=== PATIENT | female | born 1940 | race Caucasian/White ===

== ENCOUNTER → 2016-08-26 | Outpatient (CLI) | payer MEDICAID, MEDICARE ==
[~2016-08-26] MED LIST: DOBUTamine DRIP for NUC MED 500 MG in DEXTROSE/WATER 1 250ML.BAG IV ONE
--- NOTE | 2016-08-26 12:32 | ECHOS ---
DATE OF SERVICE: 08/26/2016 AGE: 76Y SEX: F HT: WT: lbs. Protocol Nolan: Others: Dobutamine Stress Echo Stage: Dur. of Exercise: *Heart Rate Blood Pressure *Rest: 81 Rest: 127/78 * *Max. Achieved: 136 Maximum BP: 140/72 85% PMHR: 123 100% PMHR: 145 *METS: INDICATIONS: Chest pain. MEDICATIONS: Synthroid. Mrs. Edouard is a 76-year-old female with history of hypothyroidism being evaluated for chest pains and cardiac status. STRESS DATA: Baseline EKG showed sinus rhythm with normal VA interval and QRS duration. Blood pressure at rest is 127/78, pulse rate of 81. A standard dose of dobutamine was initiated and titrated to 20 mcg. Patient achieved a maximum heart rate of 136 with blood pressure of 140/72. EKGs taken during and after the infusion did not reveal any changes to suggest ischemia. Baseline echo images show normal wall motion and thickening. Exercise echo images at low dose and high-dose dobutamine showed augmentation of the wall motion and thickening in all the segments. FINAL IMPRESSION: 1. Negative dobutamine stress test. 2. Negative dobutamine stress echo.
[2016-08-26 12:44] LABS: CH 31.8; CHCM 33.6; HCT 44.4 % (34.0-46.0); HGB 14.8 gm/dL (11.4-16.0); MCH 31.6 pg (25.0-35.0); MCHC 33.3 g/dL (31.0-37.0); MCV 94.9 fL (80.0-100.0); Mean Platelet Volume 7.1; RBC 4.68 m/uL (3.80-5.40); RDW 12.8 % (11.5-15.5); WBC 5.2 k/uL (3.8-10.6)
[2016-08-26 12:49] LABS: Appearance,Urine Clear (Clear); Bilirubin,Urine Negative (Negative); Glucose,Urine (UA) Negative (Negative); Ketones,Urine Negative (Negative); Leukocyte Esterase,Urine Trace (Negative); Mucus,Urine Rare /hpf; Nitrite,Urine Negative (Negative); PH, Urine 5.5 (5.0-8.0); Particle Count 3125; Protein,Urine Negative (Negative); Specific Gravity,Urine 1.015 (1.001-1.035); Squamous Epithelial Cell,Urine 1 /hpf (0-4); UA Billing (MACRO vs. MICRO) MICRO; Urobilinogen,Urine <2.0 mg/dL (<2.0); WBC,Urine <1 /hpf (0-5)
[2016-08-26 13:11] LABS: ALT 38 U/L (9-52); AST 29 U/L (14-36); Alkaline Phosphatase 83 U/L (38-126); Anion Gap 12 mmol/L; Blood Urea Nitrogen 12 mg/dL (7-17); Calcium 9.6 mg/dL (8.4-10.2); Carbon Dioxide 26 mmol/L (22-30); Chloride 106 mmol/L (98-107); Cholesterol 219 mg/dL (<200); Creatine Kinase 117 U/L (30-135); Glucose 101 mg/dL (74-99); HDL Cholesterol 60 mg/dL (40-60); Non-African American GFR(MDRD) >60 (>60 ml/min/1.73 sqM); Potassium 4.6 mmol/L (3.5-5.1); Sodium 144 mmol/L (137-145); Total Bilirubin 0.8 mg/dL (0.2-1.3); Total Protein 7.6 g/dL (6.3-8.2); Triglycerides 208 mg/dL (<150)
[2016-08-26 13:45] LABS: Hemoglobin A1C 5.5 % (4.2-6.1)
--- NOTE | 2016-08-30 08:08 | MM ---
Reason for exam: screening (asymptomatic). Last mammogram was performed 1 year and 1 month ago. History: Patient is postmenopausal. Family history of breast cancer in 2 maternal aunts at age 60. Benign excisional biopsy of the right breast, 1970. Took estrogen for 20 years. Taking other hormone. Physical Findings: A clinical breast exam by your physician is recommended on an annual basis and results should be correlated with mammographic findings. MG 3D Screening Mammo W/Cad Bilateral CC and MLO view(s) were taken. Prior study comparison: July 27, 2015, bilateral MG screening mammo w CAD. April 25, 2014, bilateral MG screening mammo w CAD. February 07, 2013, bilateral digital screening mammo w/CAD. January 25, 2012, bilateral digital screening mammo w/CAD. There are scattered fibroglandular densities. No significant changes when compared with prior studies. ASSESSMENT: Negative, BI-RAD 1 RECOMMENDATION: Routine screening mammogram of both breasts in 1 year.
--- NOTE | 2016-08-30 15:30 | BD ---
EXAMINATION TYPE: MG DEXA axial skeleton. DATE OF EXAM: 08/26/2016 5:20 PM COMPARISON: NONE CLINICAL HISTORY: M81.0 76-year-old female age-related osteoporosis Height: 61.5 Weight: 140 FRAX RISK QUESTIONS: Alcohol (3 or more units per day): No Family History (Parent hip fracture): No Glucocorticoids (More than 3mos): No (Ex: prednisone, prednisolone, methylprednisolone, dexamethasone, and hydrocortisone). History of Fracture in Adulthood: No Secondary Osteoporosis: No 1. Type 1 Diabetes: No 2. Hyperthyroidism: No 3. Menopause before 45: Yes 4. Malnutrition: No 5. Chronic liver disease: No Rheumatoid Arthritis: No Current Tobacco Use: No RISK FACTORS HISTORY OF: Family History of Osteoporosis: None known Smoke tobacco: No Drink Alcohol: Social Active: Was, but has retired now Diet low in dairy products/other sources of calcium: Postmenopausal woman: Yes, at age 32, total hystorectomy Take estrogen and/or progesterone medications: Yes in the past How long: For 20 years Adrenal Insufficiency: No MEDICATIONS: Prednisone or other steroids: Yes, Synthroid How Lon plus years Additional Medications: None to note except the thyroid meds Additional History: None to note EXAM MEASUREMENTS: Bone mineral densitometry was performed using the [employer]. Bone mineral density as measured about the Lumbar spine is: ----- L1-L4(G/cm2): 1.255 T Score Values are as follows: ----- L1: -0.4 ----- L2: 0.9 ----- L3: 0.5 ----- L4: 1.1 ----- L1-L4: 0.6 Bone mineral density has: 1.8% since study of: 09/19/2014 Bone mineral density about the R hip (g/cm2): 0.927 Bone mineral density about the L hip (g/cm2): 0.686 T Score values are as follows: -----R Neck: -2.5 -----L Neck: -0.8 -----R Intertrochanter: -2.6 -----L Intertrochanter: -2.7 Bone mineral density has: Decreased -2.2% since study of: 09/21/2014 FRAX %'S: FOR MAJOR OSTEOPOROTIC FX: 17.4%.....FOR HIP FX: 5.7% PROBABILITY OF FX IN 10 YRS TIME IMPRESSION: Osteoporosis (T Score less than -2.5) as noted by T Score values at the There is increased fracture risk and therapy is usually indicated based on age. Re-Screen 1-2 years. For both of her hips NOTE: T-SCORE=SD OF THE YOUNG ADULT MEAN.
== END | disposition home or self-care (01) ==
LOC: RADNMMAIN 10:06
PROVIDERS: ATTEND Family Medicine
DX: Z12.31 Encounter for screening mammogram for malignant neoplasm of breast (principal); R07.9 Chest pain, unspecified; M81.0 Age-related osteoporosis without current pathological fracture; E78.5 Hyperlipidemia, unspecified; E03.9 Hypothyroidism, unspecified
CPT/HCPCS: 93017; 93350; 80061; 80053; 83036; 82550; 84443; 85027; 81001; 82306; 77080; 77063; 36415; G0202; J1250

== ENCOUNTER → 2017-09-25 | Outpatient (CLI) | payer MEDICARE ==
[2017-09-25 10:43] LABS: Basophils # (A) 0.1 k/uL (0-0.2); Basophils % (A) 1 %; Eosinophils # (A) 0.1 k/uL (0-0.7); Eosinophils % (A) 1 %; HCT 45.4 % (34.0-46.0); HGB 14.9 gm/dL (11.4-16.0); Lymphocytes # (A) 2.3 k/uL (1.0-4.8); Lymphocytes % (A) 36 %; MCH 30.8 pg (25.0-35.0); MCHC 32.7 g/dL (31.0-37.0); MCV 94.2 fL (80.0-100.0); Mean Platelet Volume 7.2; Monocytes # (A) 0.4 k/uL (0-1.0); Monocytes % (A) 7 %; Neutrophils # (A) 3.4 k/uL (1.3-7.7); Neutrophils % (A) 54 %; Platelet Count 255 k/uL (150-450); RBC 4.82 m/uL (3.80-5.40); RDW 12.5 % (11.5-15.5); WBC 6.4 k/uL (3.8-10.6)
[2017-09-25 11:12] LABS: ALT 26 U/L (9-52); AST 24 U/L (14-36); Albumin 4.4 g/dL (3.5-5.0); Alkaline Phosphatase 83 U/L (38-126); Anion Gap 7 mmol/L; Blood Urea Nitrogen 14 mg/dL (7-17); Carbon Dioxide 31 mmol/L (22-30); Chloride 104 mmol/L (98-107); Cholesterol 219 mg/dL (<200); Glucose 105 mg/dL (74-99); HDL Cholesterol 58 mg/dL (40-60); LDL Cholesterol,Calculated 127 mg/dL (0-99); Potassium 5.1 mmol/L (3.5-5.1); Sodium 142 mmol/L (137-145); Total Bilirubin 0.7 mg/dL (0.2-1.3); Total Protein 7.5 g/dL (6.3-8.2); Triglycerides 169 mg/dL (<150)
[2017-09-25 11:24] LABS: T4, Free (Free Thyroxine) 1.12 ng/dL (0.78-2.19)
--- NOTE | 2017-09-27 10:49 | MM ---
Reason for exam: screening (asymptomatic). Last mammogram was performed 1 year and 1 month ago. History: Patient is postmenopausal. Family history of breast cancer in 2 maternal aunts at age 60 and breast cancer in daughter at age 50. Benign excisional biopsy of the right breast, 1970. Took estrogen for 20 years. Taking other hormone. Physical Findings: A clinical breast exam by your physician is recommended on an annual basis and results should be correlated with mammographic findings. MG 3D Screening Mammo W/Cad Bilateral CC and MLO view(s) were taken. Prior study comparison: August 26, 2016, bilateral MG 3d screening mammo w/cad. July 27, 2015, bilateral MG screening mammo w CAD. There are scattered fibroglandular densities. There is chronic nodularity in the left breast. No significant changes when compared with prior studies. ASSESSMENT: Negative, BI-RAD 1 RECOMMENDATION: Routine screening mammogram of both breasts in 1 year.
== END | disposition home or self-care (01) ==
LOC: RADMAMWWP 10:09
PROVIDERS: ATTEND Family Medicine
DX: Z12.31 Encounter for screening mammogram for malignant neoplasm of breast (principal); Z00.00 Encounter for general adult medical examination without abnormal findings; E03.9 Hypothyroidism, unspecified; E78.5 Hyperlipidemia, unspecified; E55.9 Vitamin D deficiency, unspecified
CPT/HCPCS: 36415; 77063; 77067; 80053; 80061; 82306; 84439; 84443; 85025

== ENCOUNTER 2018-10-02 11:57 | Emergency (ER) | payer MEDICARE ==
[2018-10-02 12:45] VITALS: BP 134/83; PULSE 74; RESP 16; TEMP 97.8
--- NOTE | 2018-10-02 13:47 | XR ---
EXAMINATION TYPE: XR humerus 2 views RT, XR shoulder complete 3 views RT DATE OF EXAM: 10/02/2018 COMPARISON: NONE HISTORY: 78-year-old female with pain after fall FINDINGS: Mild degenerative joint space narrowing at the AC joint. There is some bony irregularity at the great er tuberosity and some narrowing between the lateral acromion and greater tuberosity on the Grashey v iew. Degenerative spurring at the glenohumeral joint. No acute fracture, subluxation, dislocation. No acute fracture of the more mid to distal humerus. IMPRESSION: 1. Mild AC joint OA. 2. Bony changes at the greater tuberosity suggests underlying chronic rotator cuff tendinopathy. 3. Underlying rotator cuff tear difficult to exclude as there does seem to be some narrowing of the s ubacromial space on some views. 4. Underlying mild glenohumeral joint OA. 5. No acute osseous or poorly seen.
[2018-10-02] MEDS ORDERED: ACET/COD 300 MG/30 MG STARTER PACK 6 TAB BTL PO STA (14:09)
--- NOTE | 2018-10-02 14:10 | ED ---
Upper Extremity HPI - General Chief Complaint: Extremity Injury, Upper Stated Complaint: Arm pain Time Seen by Provider: 10/02/18 12:48 Source: patient, RN notes reviewed, old records reviewed Mode of arrival: ambulatory Limitations: no limitations - History of Present Illness Initial Comments: 78 year old female with R shoulder pain after she fell in her basemsnt yesterday. She reports no head injury or LOC. She reports pain with ROM of right shoulder and unable to lift arm. She denies chest pain, shortness of breath. - Related Data Previous Rx's Medication Instructions Recorded Ibuprofen 600 mg PO TID #20 tablet 10/02/18 Allergies Allergy/AdvReac Type Severity Reaction Status Date / Time No Known Allergies Allergy Verified 10/02/18 12:45 Review of Systems ROS Statement: Those systems with pertinent positive or pertinent negative responses have been documented in the HPI. ROS Other: All systems not noted in ROS Statement are negative. Past Medical History Past Medical History: No Reported History History of Any Multi-Drug Resistant Organisms: None Reported Past Surgical History: Cholecystectomy, Hysterectomy, Orthopedic Surgery, Tonsillectomy Past Psychological History: No Psychological Hx Reported Smoking Status: Never smoker Past Alcohol Use History: Rare Past Drug Use History: None Reported General Exam - General Exam Comments Initial Comments: 78 year old female, no distress. Limitations: no limitations General appearance: alert, in no apparent distress Head exam: Present: atraumatic, normocephalic, normal inspection Eye exam: Present: normal appearance, PERRL, EOMI. Absent: scleral icterus, conjunctival injection, periorbital swelling ENT exam: Present: normal exam, mucous membranes moist Neck exam: Present: normal inspection. Absent: tenderness, meningismus, lymphadenopathy Respiratory exam: Present: normal lung sounds bilaterally. Absent: respiratory distress, wheezes, rales, rhonchi, stridor Cardiovascular Exam: Present: regular rate, normal rhythm, normal heart sounds. Absent: systolic murmur, diastolic murmur, rubs, gallop, clicks Extremities exam: Present: normal capillary refill. Absent: normal inspection, full ROM (Patient has limited ROM of R shoulder ), tenderness, pedal edema, joint swelling, calf tenderness Back exam: Present: normal inspection Psychiatric exam: Present: normal affect, normal mood Skin exam: Present: warm, dry, intact, normal color. Absent: rash Course Vital Signs 10/02/18 12:41 Temperature 97.8 F Pulse Rate 74 Respiratory 16 Rate Blood Pressure 134/83 O2 Sat by Pulse 99 Oximetry Medical Decision Making - Medical Decision Making 78 year old female with R shoulder pain after fall.She is unable to abduct and patient has xray completed. Xray shows concern for rotator cuff injury. Placed in sling and given ortho follow up. Return parameters discussed. - Radiology Data Radiology results: report reviewed Mild before meals joint os or arthritis. Bony changes the greater tuberosity suggesting underlying chronic rotator cuff tendinopathy. Underlying rotator cuff tear difficult to exclude as there does seem to be some narrowing of the subacromial space. Underlying mild general humeral joint 08. No acute osseous or N O'Gisel seen. Disposition Clinical Impression: Rotator cuff injury, Fall Disposition: HOME SELF-CARE Condition: Good Instructions (If sedation given, give patient instructions): Rotator Cuff Injury (ED) Additional Instructions: Patient advised to have close follow-up with primary care physician and biomedical specialist. Wear the sling practice range of motion. Motrin and Tylenol for pain. Use Ice. Prescriptions: Ibuprofen 600 mg PO TID #20 tablet Is patient prescribed a controlled substance at d/c from ED?: No Referrals: Carline Hollis MD [Primary Care Provider] - 1-2 days Ronaldo Vincent MD [STAFF PHYSICIAN] - 1-2 days Time of Disposition: 14:07
== END 2018-10-02 14:28 | disposition home or self-care (01) ==
LOC: EC 11:57
DX: S46.001A Unspecified injury of muscle(s) and tendon(s) of the rotator cuff of right shoulder, initial encounter (principal); W19.XXXA Unspecified fall, initial encounter; Y92.89 Other specified places as the place of occurrence of the external cause
CPT/HCPCS: 99284

== ENCOUNTER → 2019-05-15 | Outpatient (CLI) | payer MEDICARE ==
[2019-05-15 10:37] LABS: Basophils % (A) 1 %; Eosinophils # (A) 0.1 k/uL (0-0.7); Eosinophils % (A) 1 %; HCT 43.9 % (34.0-46.0); Lymphocytes # (A) 1.6 k/uL (1.0-4.8); Lymphocytes % (A) 27 %; MCH 32.7 pg (25.0-35.0); MCHC 34.2 g/dL (31.0-37.0); MCV 95.7 fL (80.0-100.0); Mean Platelet Volume 6.6; Monocytes # (A) 0.4 k/uL (0-1.0); Monocytes % (A) 6 %; Neutrophils # (A) 3.6 k/uL (1.3-7.7); Neutrophils % (A) 63 %; Platelet Count 250 k/uL (150-450); RBC 4.59 m/uL (3.80-5.40); RDW 12.4 % (11.5-15.5); WBC 5.7 k/uL (3.8-10.6)
[2019-05-15 10:41] LABS: ALT 22 U/L (9-52); AST 24 U/L (14-36); African American GFR (CKD) >90 (>60 ml/min/1.73 sqM); Albumin 4.3 g/dL (3.5-5.0); Alkaline Phosphatase 73 U/L (38-126); Anion Gap 7 mmol/L; Blood Urea Nitrogen 11 mg/dL (7-17); Calcium 9.9 mg/dL (8.4-10.2); Carbon Dioxide 29 mmol/L (22-30); Chloride 106 mmol/L (98-107); Cholesterol 189 mg/dL (<200); Glucose 103 mg/dL (74-99); HDL Cholesterol 56 mg/dL (40-60); LDL Cholesterol,Calculated 100 mg/dL (0-99); Potassium 5.2 mmol/L (3.5-5.1); Sodium 142 mmol/L (137-145); Total Bilirubin 0.7 mg/dL (0.2-1.3); Total Protein 7.4 g/dL (6.3-8.2); Triglycerides 167 mg/dL (<150)
[2019-05-15 10:52] LABS: T4, Free (Free Thyroxine) 1.38 ng/dL (0.78-2.19)
--- NOTE | 2019-05-16 14:44 | MM ---
Reason for exam: screening (asymptomatic). Last mammogram was performed 1 year and 8 months ago. History: Patient is postmenopausal. Family history of breast cancer in 2 maternal aunts at age 60 and breast cancer in daughter at age 50. Benign excisional biopsy of the right breast, 1970. Took estrogen for 20 years. Taking other hormone. Physical Findings: A clinical breast exam by your physician is recommended on an annual basis and results should be correlated with mammographic findings. MG 3D Screening Mammo W/Cad Bilateral CC and MLO view(s) were taken. Prior study comparison: September 25, 2017, bilateral MG 3d screening mammo w/cad. August 26, 2016, bilateral MG 3d screening mammo w/cad. The breast tissue is heterogeneously dense. This may lower the sensitivity of mammography. Benign appearing bilateral calcifications. No suspicious abnormality. No significant changes when compared with prior studies. ASSESSMENT: Benign, BI-RAD 2 RECOMMENDATION: Routine screening mammogram of both breasts in 1 year.
== END | disposition home or self-care (01) ==
LOC: RADMAMWWP 08:50
PROVIDERS: ATTEND Family Medicine
DX: Z12.31 Encounter for screening mammogram for malignant neoplasm of breast (principal); M81.0 Age-related osteoporosis without current pathological fracture; E03.9 Hypothyroidism, unspecified; E78.5 Hyperlipidemia, unspecified; E55.9 Vitamin D deficiency, unspecified
CPT/HCPCS: 36415; 77063; 77067; 80053; 80061; 84439; 84443; 85025

== ENCOUNTER 2021-07-18 13:25 | Emergency (ER) | payer MEDICARE ==
--- NOTE | 2021-07-18 14:28 | ED ---
General Adult HPI - General Stated complaint: COVID+,wants antibodies Time Seen by Provider: 07/18/21 13:37 Source: patient, RN notes reviewed Mode of arrival: ambulatory Limitations: no limitations - History of Present Illness Initial comments: 81-year-old female presents emergency Department with chief complaint of covid 19. Patient states that she tested positive today.A symptoms started today. Patient states she did have mild headache 2 days ago. Patient denies any chest pain shortness breath she's had her prior vaccine. No shortness breath no chest pain or nausea vomiting diarrhea constipation no sick contacts patient has a positive results from [facility]. - Related Data Previous Rx's Medication Instructions Recorded Ibuprofen 600 mg PO TID #20 tablet 10/02/18 Allergies Allergy/AdvReac Type Severity Reaction Status Date / Time No Known Allergies Allergy Verified 07/18/21 13:51 Review of Systems ROS Statement: Those systems with pertinent positive or pertinent negative responses have been documented in the HPI. ROS Other: All systems not noted in ROS Statement are negative. Past Medical History Past Medical History: No Reported History History of Any Multi-Drug Resistant Organisms: None Reported Past Surgical History: Cholecystectomy, Hysterectomy, Orthopedic Surgery, Tonsillectomy Past Psychological History: No Psychological Hx Reported Smoking Status: Never smoker Past Alcohol Use History: Rare Past Drug Use History: None Reported General Exam Limitations: no limitations General appearance: alert, in no apparent distress Head exam: Present: atraumatic, normocephalic, normal inspection Eye exam: Present: normal appearance, PERRL, EOMI. Absent: scleral icterus, conjunctival injection, periorbital swelling ENT exam: Present: normal exam, normal oropharynx, mucous membranes moist Neck exam: Present: normal inspection, full ROM. Absent: tenderness, meningismus, lymphadenopathy Respiratory exam: Present: normal lung sounds bilaterally. Absent: respiratory distress, wheezes, rales, rhonchi, stridor Cardiovascular Exam: Present: regular rate, normal rhythm, normal heart sounds. Absent: systolic murmur, diastolic murmur, rubs, gallop, clicks Neurological exam: Present: alert Skin exam: Present: warm, dry, intact, normal color. Absent: rash Course Vital Signs 07/18/21 13:45 Temperature 98.7 F Pulse Rate 77 Respiratory 18 Rate Blood Pressure 130/72 O2 Sat by Pulse 97 Oximetry Medical Decision Making - Medical Decision Making Patient received monoclonal antibodies patient will be discharged and stable condition return parameters discussed. Disposition Clinical Impression: COVID-19 Disposition: HOME SELF-CARE Condition: Stable Instructions (If sedation given, give patient instructions): Coronavirus Disease 2019 (COVID-19) Additional Instructions: Please return to the Emergency Department if symptoms worsen or any other concerns. Is patient prescribed a controlled substance at d/c from ED?: No Referrals: Nonstaff,Physician [Primary Care Provider] - 1-2 days Time of Disposition: 14:27
[2021-07-18] MEDS ORDERED: BAMLANIVIMAB (EUA) 700 MG, ETESEVIMAB (EUA) 1,400 MG in SODIUM CHLORIDE 0.9% 50 ML IVPB ONE (14:30)
[2021-07-18] MEDS ORDERED: SODIUM CHLORIDE 0.9% 50 ML IVPB ONE (15:00)
[2021-07-18 16:20] VITALS: BP 134/76; PULSE 60; RESP 20; TEMP 97.6
== END 2021-07-18 16:21 | disposition home or self-care (01) ==
LOC: EC 13:25
DX: U07.1 COVID-19 (principal)
CPT/HCPCS: 99283; J3490

== ENCOUNTER → 2021-12-24 | Outpatient (CLI) | payer MEDICARE ==
--- NOTE | 2021-12-24 09:20 | MR ---
EXAMINATION TYPE: MR brain wo con DATE OF EXAM: 12/24/2021 COMPARISON: CT brain 2012 HISTORY: Memory loss, CVA, Cognitive dysfunction TECHNIQUE: Multiplanar, multisequence imaging of the brain and brainstem is performed without IV cont rast. FINDINGS: Diffusion weighted images demonstrate no evidence of a recent infarct or other diffusion abnormality. There is mild ventricular and sulcal prominence. Some scattered areas of T2 hyperintensity throughout the white matter bilaterally are identified. Lesions are nonspecific in appearance and distribution. Midline structures demonstrate normal morphology. The craniocervical junction appears within normal limits. Normal vascular flow voids are present. The visualized sinuses are clear and the globes are i ntact. IMPRESSION: Mild diffuse age related cerebral atrophy and chronic small vessel ischemic change.
== END | disposition home or self-care (01) ==
LOC: RADMRIMAIN 08:09
PROVIDERS: ATTEND Psychiatry & Neurology Neurology
DX: G31.9 Degenerative disease of nervous system, unspecified (principal); R46.3 Overactivity
CPT/HCPCS: 70551

== ENCOUNTER 2022-02-26 13:15 | Emergency (ER) | payer MEDICARE ==
[2022-02-26 13:23] VITALS: BP 137/79; PULSE 76; RESP 20; TEMP 98.1
--- NOTE | 2022-02-26 13:55 | ED ---
General Adult HPI - General Chief complaint: Headache Stated complaint: Covid+, infusion Time Seen by Provider: 02/26/22 13:27 Source: patient, RN notes reviewed Mode of arrival: ambulatory Limitations: no limitations - History of Present Illness Initial comments: 81-year-old female presents to the emergency room for a chief complaint antibodies. Patient had company from [place] over and started to have symptoms of COVID-19 4 days ago. She tested positive with home test today. She is a mild headache and a slight cough. No shortness of breath or fevers. Patient does not have any medical problems. Patient was dropped off by her daughter for antibody infusion.Patient has no other complaints at this time including shortness of breath, chest pain, abdominal pain, nausea or vomiting, headache, or visual changes. - Related Data Previous Rx's Medication Instructions Recorded Ibuprofen 600 mg PO TID #20 tablet 10/02/18 Nirmatrelvir/Ritonavir [Paxlovid 1 each PO BID 5 Days #20 tab 02/26/22 150-100 mg Pack (Eua)] Allergies Allergy/AdvReac Type Severity Reaction Status Date / Time No Known Allergies Allergy Verified 02/26/22 13:23 Review of Systems ROS Statement: Those systems with pertinent positive or pertinent negative responses have been documented in the HPI. ROS Other: All systems not noted in ROS Statement are negative. Past Medical History Past Medical History: Thyroid Disorder History of Any Multi-Drug Resistant Organisms: None Reported Past Surgical History: Cholecystectomy, Hysterectomy, Orthopedic Surgery, Tonsillectomy Past Psychological History: No Psychological Hx Reported Smoking Status: Never smoker Past Alcohol Use History: Rare Past Drug Use History: None Reported General Exam Limitations: no limitations General appearance: alert, in no apparent distress Head exam: Present: atraumatic Eye exam: Present: normal appearance, PERRL, EOMI. Absent: scleral icterus, conjunctival injection ENT exam: Present: normal exam, mucous membranes moist Neck exam: Present: normal inspection, full ROM. Absent: tenderness Respiratory exam: Present: normal lung sounds bilaterally. Absent: respiratory distress, wheezes Cardiovascular Exam: Present: regular rate, normal rhythm, normal heart sounds Course Vital Signs 02/26/22 13:20 Temperature 98.1 F Pulse Rate 76 Respiratory 20 Rate Blood Pressure 137/79 O2 Sat by Pulse 99 Oximetry Medical Decision Making - Medical Decision Making Vitals are stable. Patient is well-appearing. She is not in any respiratory distress. She does not have any medical comorbidities aside from age. At this time our facility is in very low supply of IV antibody infusion. Therefore patient will be given oral antibodies. After several phone calls I did discuss this with her daughter Viji. They are aware they need to go to [facility] for the prescription. Disposition Clinical Impression: COVID-19 Disposition: HOME SELF-CARE Condition: Good Instructions (If sedation given, give patient instructions): COVID-19 (Coronavirus Disease 2019) (ED) Additional Instructions: The supply of IV antibody infusion is very low in our region this week. However, we will be able to give you the pill form of the antibodies which has been found to be effective in preventing adverse outcomes in COVID 19. The prescription was sent to [facility] as that is the only pharmacy in the area with the medication. There will be two different medications. Take the two pills together twice per day for 5 days. Return to the ER for any worsening symptoms such as difficulty breathing. Prescriptions: Nirmatrelvir/Ritonavir [Paxlovid 150-100 mg Pack (Eua)] 1 each PO BID 5 Days #20 tab Is patient prescribed a controlled substance at d/c from ED?: No Referrals: Marichuy Silva MD [REFERRING] - 1-2 days Time of Disposition: 13:52
== END 2022-02-26 14:30 | disposition home or self-care (01) ==
LOC: EC 13:15
DX: U07.1 COVID-19 (principal)
CPT/HCPCS: 99283

== ENCOUNTER → 2022-07-01 | Outpatient (CLI) | payer MEDICARE ==
[2022-07-01 23:49] LABS: T4, Free (Free Thyroxine) 1.35 ng/dL (0.800-1.800)
== END | disposition home or self-care (01) ==
LOC: LABWHC1 16:05
PROVIDERS: ATTEND Psychiatry & Neurology Neurology
DX: E03.9 Hypothyroidism, unspecified (principal)
CPT/HCPCS: 36415; 84439; 84443; 84481

== ENCOUNTER → 2023-09-22 | Outpatient (CLI) | payer MEDICARE ==
[2023-09-22 15:09] LABS: Basophils # (A) 0.03 X 10*3/uL (0.00-0.10); Basophils % (A) 0.5 %; Eosinophils # (A) 0.05 X 10*3/uL (0.04-0.35); Eosinophils % (A) 0.8 %; HCT 44.4 % (37.2-46.3); HGB 14.7 g/dL (12.0-15.0); Lymphocytes # (A) 1.46 X 10*3/uL (0.90-5.00); Lymphocytes % (A) 24.2 %; MCH 31.5 pg (27.0-32.0); MCHC 33.1 g/dL (32.0-37.0); MCV 95.3 FL (80.0-97.0); Mean Platelet Volume 10.1 FL (9.5-12.2); Monocytes # (A) 0.52 X 10*3/uL (0.20-1.00); Monocytes % (A) 8.6 %; NRBC Per 100 WBC 0 X 10*3/uL (0.00-0.01); Neutrophils # (A) 3.97 X 10*3/uL (1.80-7.70); Neutrophils % (A) 65.7 %; Platelet Count 288 X 10*3/uL (140-440); RBC 4.66 X 10*6/uL (4.10-5.20); RDW 13.1 % (11.5-14.5); WBC 6.04 X 10*3/uL (4.50-10.00)
[2023-09-22 15:46] LABS: ALT 17 U/L (8-44); AST 17 U/L (13-35); Albumin 4.2 g/dL (3.8-4.9); Albumin/Globulin Ratio 1.75 Ratio (1.60-3.17); Alkaline Phosphatase 73 U/L (41-126); BUN/Creat Ratio 20.71 Ratio (12.00-20.00); Blood Urea Nitrogen 14.5 mg/dL (9.0-27.0); Calcium 9.6 mg/dL (8.7-10.3); Carbon Dioxide 25.9 mmol/L (21.6-31.8); Chloride 106 mmol/L (96-109); Globulin 2.4 g/dL (1.6-3.3); Glucose 107 mg/dL (70-110); LDL Cholesterol,Calculated 105.4 mg/dL (0.0-131.0); Potassium 4.2 mmol/L (3.5-5.5); Sodium 142 mmol/L (135-145); T4, Free (Free Thyroxine) 1.55 ng/dL (0.80-1.80); Total Bilirubin 0.7 mg/dL (0.3-1.2); Total Protein 6.6 g/dL (6.2-8.2); VLDL Calculation 19.76 mg/dL (5.00-40.00)
== END | disposition home or self-care (01) ==
LOC: LABWHC1 08:39
PROVIDERS: ATTEND Family Medicine
DX: Z00.01 Encounter for general adult medical examination with abnormal findings (principal); E03.9 Hypothyroidism, unspecified; Z79.899 Other long term (current) drug therapy
CPT/HCPCS: 36415; 80053; 80061; 82306; 83036; 84439; 84443; 85025

== ENCOUNTER → 2023-10-06 | Outpatient (CLI) | payer MEDICARE ==
--- NOTE | 2023-10-11 07:35 | MM ---
Reason for Exam: Screening (asymptomatic). Last mammogram was performed 4 year(s) and 5 month(s) ago. Patient History: Menarche at age 12. First Full-Term at age 20. Left ovary removed at age 32. Right ovary removed at age 32. Hysterectomy at age 32. Postmenopausal. Patient used Estrogen for 20 years. 1970, Benign Excisional Biopsy on the right side. Maternal aunt had breast cancer, age 60. Maternal aunt had breast cancer, age 60. Daughter had breast cancer, age 50. Risk Values: Beckie 5 year model risk: 3.8%. NCI Lifetime model risk: 5.0%. Prior Study Comparison: 08/26/2016 Bilateral Screening Mammogram, [facility]. 09/25/2017 Bilateral Screening Mammogram, [facility]. 05/15/2019 Bilateral Screening Mammogram, [facility]. Tissue Density: There are scattered areas of fibroglandular density. Findings: Analyzed By CAD. There is chronic nodularity on the left. There is no suspicious group of microcalcifications or new suspicious mass in either breast. Overall Assessment: Benign, BI-RAD 2 Management: Screening Mammogram of both breasts in 1 year. See note below in regards to patient's increased 5 year Beckie score. Patient should continue monthly self-breast exams. A clinical breast exam by your physician is recommended on an annual basis. This exam should not preclude additional follow-up of suspicious palpable abnormalities. Note on Beckie scores and lifetime risk: 1. A Beckie score greater than 3% is considered moderate risk. If this is the case, consider specialist referral to assess eligibility for a risk reducing agent. 2. If overall lifetime risk for the development of breast cancer is 20% or higher, the patient may qualify for future screening with alternating mammogram and breast MRI. Electronically signed and approved by: Gali Thakur M.D. Radiologist
== END | disposition home or self-care (01) ==
LOC: RADMAMWWP 15:30
PROVIDERS: ATTEND Family Medicine
DX: Z12.31 Encounter for screening mammogram for malignant neoplasm of breast (principal); Z80.3 Family history of malignant neoplasm of breast; Z78.0 Asymptomatic menopausal state
CPT/HCPCS: 77063; 77067

== ENCOUNTER → 2024-12-18 | Outpatient (CLI) | payer MEDICARE ==
--- NOTE | 2024-12-19 07:14 | CT ---
EXAMINATION TYPE: CT brain wo con DATE OF EXAM: 12/18/2024 COMPARISON: None. CLINICAL INDICATION: Female, 84 years old with history of Z86.59 PERS HX MENTAL BEHAVIOR DISORDER, AM S, Hx of mental behavior disorder. TECHNIQUE: CT scan of the head is performed without contrast. CT DLP: 1064.3 mGycm. Automated Exposure Control for Dose Reduction was Utilized. FINDINGS: There is no acute intracranial hemorrhage or midline shift identified. There is mild-to-m oderate diffuse ventricular and sulcal prominence consistent with diffuse age-related cerebral atroph y. There is mild to moderate low-attenuation in the periventricular white matter consistent with chr onic small vessel ischemic change. Bilateral aphakia is present. The visualized sinuses are clear. IMPRESSION: No acute intracranial hemorrhage or midline shift. There is mild to moderate diffuse ag e-related cerebral atrophy and chronic small vessel ischemic change noted. [facility], , 12/19/2024 7:11 AM
--- NOTE | 2024-12-19 07:40 | US ---
EXAMINATION TYPE: US carotid duplex BILAT DATE OF EXAM: 12/18/2024 COMPARISON: NONE CLINICAL INDICATION: Female, 84 years old with history of [id number] MENTAL STATUS CHANGE RESOLVED; AMS, h eadaches. Weakness and dizziness. TECHNIQUE: Grayscale, color Doppler and spectral Doppler evaluation of the bilateral carotid systems and vertebral arteries. Indirect Doppler criteria was utilized. FINDINGS: EXAM MEASUREMENTS: RIGHT: Peak Systolic Velocity (PSV) cm/sec ----- Right CCA: 65.6 ----- Right ICA: 88.3 ----- Right ECA: 136 ICA/CCA ratio: 1.4 RIGHT: End Diastole cm/sec ----- Right CCA: 19.1 ----- Right ICA: 27.7 ----- Right ECA: 28.5 LEFT: Peak Systolic Velocity (PSV) cm/sec ----- Left CCA: 83.7 ----- Left ICA: 81.8 ----- Left ECA: 98.6 ICA/CCA ratio: 1.0 LEFT: End Diastole cm/sec ----- Left CCA: 20.8 ----- Left ICA: 28.2 ----- Left ECA: 17.8 VERTEBRALS (direction of flow): Right Vertebral: Antegrade Left Vertebral: Antegrade Rhythm: Normal TRIM SETTER NOTES: No elevated velocities Color Doppler imaging shows patency with blood flow throughout the carotid artery. Spectral waveforms are within normal limits. IMPRESSION: No hemodynamically significant internal carotid artery stenosis on either side. Criteria for Assigning % of Stenosis / Diameter reduction (Estimation based on the indirect measurements of the internal carotid artery velocities (ICA PSV). 1. Normal (no stenosis)=ICA PSV < 180 cm/s: ratio < 2.0: ICA EDV<40 cm/s. 2. Less than 50% stenosis=ICA PSV < 180 cm/s: ratio < 2.0: ICA EDV<40 cm/s. 3. 50 to 69% stenosis=ICA PSV of 180 to 230 cm/s: ration 2.0 ? 4.0: ICA EDV 40-100 cm/s. PSV 125-180 cm/sec and ICA/CCA PSV Ratio ? 2.0 is also consistent with 50-69% stenosis 4. Greater than 70% stenosis to near occlusion= ICA PSV > 230 cm/s: ratio > 4.0: ICA EDV > 100 cm/s. 5. Near occlusion= ICA PSV velocities may be low or undetectable: variable ratio and ICA EDV. 6. Total occlusion=unable to detect flow. [facility], Workstation: [place], 12/19/2024 7:38 AM
== END | disposition home or self-care (01) ==
LOC: RADCTMAIN 15:47
PROVIDERS: ATTEND Family Medicine
DX: I67.82 Cerebral ischemia (principal); G31.1 Senile degeneration of brain, not elsewhere classified; Z86.59 Personal history of other mental and behavioral disorders; R42 Dizziness and giddiness; R53.1 Weakness
CPT/HCPCS: 70450; 93880